=== PATIENT | male | born 1975 | race Caucasian/White ===

== ENCOUNTER 2021-10-26 11:52 | Emergency (ER) | payer MEDICAID ==
[~2021-10-26] VITALS: Ht 175.3 cm; Wt 84.4 kg
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
--- NOTE | 2021-10-26 12:21 | NUR ---
URINE COLLECTED AND SENT
[2021-10-26] MEDS ORDERED: ONDANSETRON HCL/PF 4 MG/2 ML VIAL ONE (12:26)
[2021-10-26] MEDS ORDERED: INSULIN REGULAR, HUMAN 100 UNIT/ML 10 ML VIAL ONE (12:26)
[2021-10-26] MEDS ORDERED: INSULIN REGULAR, HUMAN 100 UNIT/ML 10 ML VIAL IV ONE (12:30)
[2021-10-26] MEDS ORDERED: ONDANSETRON HCL/PF 4 MG/2 ML VIAL IVP ONE (12:30)
[2021-10-26] MEDS ORDERED: IV NS 0.9% 1,000 ML BAG IV ONE (12:30)
[2021-10-26 12:31] LABS: BASOPHILS % (AUTO) 0.6 % (0.0-2.0); EOSINOPHILS % (AUTO) 6.4 % (0.0-6.0); HEMATOCRIT 45 % (39-51); HEMOGLOBIN 14.5 g/dL (13.5-17.5); LYMPHOCYTES # (AUTO) 0.9 K/uL (0.8-4.8); LYMPHOCYTES % (AUTO) 14.9 % (20.0-44.0); MEAN CORPUSCULAR HGB CONC 32 g/dl (31.0-36.0); MEAN CORPUSCULAR VOLUME 92 fL (80-96); MONOCYTES # (AUTO) 0.4 K/uL (0.1-1.30); NEUTROPHILS # (AUTO) 4.4 K/uL (1.8-8.9); NEUTROPHILS % (AUTO) 71.1 % (43.0-81.0); PLATELET COUNT (AUTO) 204 K/uL (150-450); RED BLOOD CELL COUNT(AUTO) 4.92 MIL/uL (4.5-6.0); WHITE BLOOD COUNT (AUTO) 6.2 K/uL (4.3-11.0)
[2021-10-26 12:43] LABS: ALBUMIN 4.4 g/dL (3.4-5.0); BILIRUBIN,DIRECT 0.2 mg/dL (0.0-0.2); BILIRUBIN,TOTAL 0.6 mg/dL (0.2-1.0); CALCIUM, SERUM 8.2 mg/dL (8.5-10.1); CREATININE 1.3 mg/dL (0.6-1.3); POTASSIUM 4.4 mmol/L (3.5-5.1); TOTAL PROTEIN, SERUM 8.4 g/dL (6.4-8.2)
[2021-10-26 14:06] LABS: BILIRUBIN,URINE Negative (NEGATIVE); COLOR,URINE Pink (YELLOW); LEUKOCYTE ESTERASE ,URINE Negative (NEGATIVE); NITRITE, URINE Negative (NEGATIVE); PROTEIN,URINE Negative (NEGATIVE); UGLUCOSE >=1000 mg/dL (NEGATIVE); UROBILINOGEN,URINE 0.2 EU/dL (0.2)
[2021-10-26 14:16] LABS: BACTERIA,URINE None seen /HPF (None Seen); SQUAMOUS EPITHELIAL CELL,UR Few /HPF (None Seen); WBC,URINE 0-2 /HPF (0-3)
[2021-10-26 14:40] VITALS: BP 123/88
--- NOTE | 2021-10-26 14:40 | NUR ---
Patient discharged to home in stable condition. Written and verbal after care instructions given. Patient verbalizes understanding of instruction.IV removed. Catheter intact and site benign. Pressure and 4x4 applied to site. No bleeding noted.
== END 2021-10-26 14:41 | disposition home or self-care (01) ==
LOC: ER 12:00
DX: E11.65 Type 2 diabetes mellitus with hyperglycemia (principal); R11.0 Nausea
CPT/HCPCS: 36415; 80048; 80076; 81001; 82962 ×2; 85025; 96361; 96374; 96375; 99284; J1815; J2405; J7030

== ENCOUNTER 2021-11-19 08:41 | Emergency (ER) | payer MEDICAID, OTHER ==
[~2021-11-19] VITALS: Ht 175.3 cm; Wt 77.1 kg
[2021-11-19] MEDS ORDERED: SULF1TAB48 PO (09:16)
[2021-11-19] MEDS ORDERED: AMOX-427 PO (09:16)
[2021-11-19 09:17] VITALS: BP 146/103
[2021-11-19] MEDS ORDERED: TDAP [DIPH/PERTUSSIS/TET] 0.5 ML VIAL IM ONE ×2 (09:26→09:30)
--- NOTE | 2021-11-19 09:50 | NUR ---
Patient discharged to home in stable condition. Written and verbal after care instructions given. Patient verbalizes understanding of instruction.
== END 2021-11-19 09:50 | disposition home or self-care (01) ==
LOC: ER 08:47
DX: S61.451A Open bite of right hand, initial encounter (principal); I10 Essential (primary) hypertension; E11.9 Type 2 diabetes mellitus without complications; W55.01XA Bitten by cat, initial encounter; Y93.89 Activity, other specified; Y92.89 Other specified places as the place of occurrence of the external cause; Y99.8 Other external cause status
CPT/HCPCS: 90715

== ENCOUNTER 2021-12-08 17:29 | Emergency (ER) | payer OTHER ==
[~2021-12-08] VITALS: Ht 175.3 cm; Wt 77.1 kg
[~2021-12-08 17:29] MED LIST: AMOX-427 PO; SULF1TAB48 PO
--- NOTE | 2021-12-08 18:15 | NUR ---
DR VALENTIN AT BEDSIDE
[2021-12-08] MEDS ORDERED: IV NS 0.9% 1,000 ML BAG IV ONE (18:30)
[2021-12-08 18:58] LABS: CALCIUM, SERUM 8.1 mg/dL (8.5-10.1); CREATININE 1.2 mg/dL (0.6-1.3); POTASSIUM 4.3 mmol/L (3.5-5.1)
[2021-12-08] MEDS ORDERED: INSULIN REGULAR, HUMAN 100 UNIT/ML 10 ML VIAL ONE (19:13)
--- NOTE | 2021-12-08 19:22 | NUR ---
ENDORSED TO IGNACIO SCALES FOR [facility]
[2021-12-08] MEDS ORDERED: IV NS 0.9% 1,000 ML IV ONE (19:30)
[2021-12-08] MEDS ORDERED: INSULIN REGULAR, HUMAN 100 UNIT/ML 10 ML VIAL SQ ONE (19:30)
--- NOTE | 2021-12-08 19:36 | NUR ---
PT TAKEN TO CT VIA [facility]
[2021-12-08] MEDS ORDERED: IOHEXOL-300 100 ML VIAL IV ONE (19:38)
[2021-12-08] MEDS ORDERED: IV NS 0.9% 250 ML IV ONE (19:38)
--- NOTE | 2021-12-08 20:23 | NUR ---
POC BS 291
[2021-12-08 20:34] LABS: BASOPHILS % (AUTO) 0.6 % (0.0-2.0); EOSINOPHILS % (AUTO) 6.1 % (0.0-6.0); HEMATOCRIT 41 % (39-51); HEMOGLOBIN 13.3 g/dL (13.5-17.5); LYMPHOCYTES # (AUTO) 0.9 K/uL (0.8-4.8); LYMPHOCYTES % (AUTO) 21.3 % (20.0-44.0); MEAN CORPUSCULAR HGB CONC 33 g/dl (31.0-36.0); MEAN CORPUSCULAR VOLUME 92 fL (80-96); MONOCYTES # (AUTO) 0.2 K/uL (0.1-1.30); MONOCYTES % (AUTO) 5.6 % (2.0-12.0); NEUTROPHILS # (AUTO) 2.9 K/uL (1.8-8.9); NEUTROPHILS % (AUTO) 66.4 % (43.0-81.0); PLATELET COUNT (AUTO) 244 K/uL (150-450); RED BLOOD CELL COUNT(AUTO) 4.44 MIL/uL (4.5-6.0); WHITE BLOOD COUNT (AUTO) 4.4 K/uL (4.3-11.0)
--- NOTE | 2021-12-08 20:35 | NUR ---
IV removed. Catheter intact and site benign. Pressure and 4x4 applied to site. No bleeding noted. Patient discharged to home in stable condition. Written and verbal after care instructions given. Patient verbalizes understanding of instruction. PT ambulatory with a steady gait
[2021-12-08 20:42] VITALS: BP 131/85
== END 2021-12-08 20:42 | disposition home or self-care (01) ==
LOC: ER 17:30
DX: E11.65 Type 2 diabetes mellitus with hyperglycemia (principal); R55 Syncope and collapse; H93.12 Tinnitus, left ear; I10 Essential (primary) hypertension; E78.5 Hyperlipidemia, unspecified
CPT/HCPCS: 36415; 70450; 70491; 71045; 80048; 82962 ×2; 84443; 85025; 93005; 96360; 96361; 96372; 99285; J1815; J7030 ×2; J7050; Q9967

== ENCOUNTER 2021-12-14 08:10 | Emergency (ER) | payer OTHER ==
[~2021-12-14] VITALS: Ht 175.3 cm; Wt 77.1 kg
--- NOTE | 2021-12-14 08:11 | NUR ---
TO ER BED 9, C/O TESTICULAR PAIN STARTED IN THE BEGINNING OF THE MONTH BUT WORSE TODAY, NO HISTORY OF THE SAME COMPLAIN BEFORE, AAOX3, BREATHING EVEN AND NON LABORED, AWAITING MD ORDERS
--- NOTE | 2021-12-14 08:22 | NUR ---
SEEN AND EXAMINED BY .
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
[2021-12-14] MEDS ORDERED: KETOROLAC TROMETHAMINE INJ 30 MG/ML VIAL IM ONE (09:00)
[2021-12-14] MEDS ORDERED: KETOROLAC TROMETHAMINE 15 MG/ML VIAL ONE (09:09)
[2021-12-14 09:21] LABS: BILIRUBIN,URINE NEGATIVE (NEGATIVE); COLOR,URINE YELLOW (YELLOW); LEUKOCYTE ESTERASE ,URINE NEGATIVE (NEGATIVE); NITRITE, URINE NEGATIVE (NEGATIVE); PROTEIN,URINE NEGATIVE (NEGATIVE); UGLUCOSE NEGATIVE (NEGATIVE); UROBILINOGEN,URINE 0.2 EU/dL (0.2)
--- NOTE | 2021-12-14 09:29 | NUR ---
DR VALENTIN AT BEDSIDE
[2021-12-14] MEDS ORDERED: IBUP-1955 PO ×2 (09:38→09:57)
[2021-12-14] MEDS ORDERED: LEVO500T90 PO ×2 (09:38→09:57)
[2021-12-14 09:48] LABS: BACTERIA,URINE Few /HPF (None Seen); SQUAMOUS EPITHELIAL CELL,UR Few /HPF (None Seen); WBC,URINE 0-2 /HPF (0-3)
--- NOTE | 2021-12-14 09:52 | NUR ---
Patient discharged to home in stable condition. Written and verbal after care instructions given. Patient verbalizes understanding of instruction.
[2021-12-14 10:09] VITALS: BP 132/94
== END 2021-12-14 10:11 | disposition home or self-care (01) ==
LOC: ER 08:11
DX: N45.1 Epididymitis (principal); N50.82 Scrotal pain; I10 Essential (primary) hypertension; E78.5 Hyperlipidemia, unspecified; E11.9 Type 2 diabetes mellitus without complications
CPT/HCPCS: 76870; 81001; 96372; 99284; J1885

== ENCOUNTER 2022-02-23 20:19 | Emergency (ER) | payer OTHER ==
[~2022-02-23] VITALS: Ht 175.3 cm; Wt 77.1 kg
[~2022-02-23 20:19] MED LIST changes: +IBUP-1955 PO; +LEVO500T90 PO
[2022-02-23] MEDS ORDERED: TDAP [DIPH/PERTUSSIS/TET] 0.5 ML VIAL IM ONE ×2 (20:40→21:00)
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
[2022-02-23 20:42] VITALS: BP 143/89
[2022-02-23] MEDS ORDERED: LIDOCAINE HCL/PF 1% 30 ML VIAL TP ONE (21:00)
== END 2022-02-23 21:17 | disposition home or self-care (01) ==
LOC: ER 20:27
DX: S01.111A Laceration without foreign body of right eyelid and periocular area, initial encounter (principal); I10 Essential (primary) hypertension; E78.5 Hyperlipidemia, unspecified; E11.9 Type 2 diabetes mellitus without complications; F41.9 Anxiety disorder, unspecified; F32.A Depression, unspecified; Z87.19 Personal history of other diseases of the digestive system; Z85.01 Personal history of malignant neoplasm of esophagus; Z79.1 Long term (current) use of non-steroidal anti-inflammatories (NSAID); Z79.899 Other long term (current) drug therapy; Y33.XXXA Other specified events, undetermined intent, initial encounter; Y93.89 Activity, other specified; Y92.521 Bus station as the place of occurrence of the external cause; Y99.8 Other external cause status
CPT/HCPCS: 12011; 90471; 90715; 99283; J3490

== ENCOUNTER 2022-02-28 19:54 | Emergency (ER) | payer OTHER ==
[~2022-02-28] VITALS: Ht 175.3 cm; Wt 108.9 kg
[2022-02-28 19:59] VITALS: BP 149/79
--- NOTE | 2022-02-28 20:18 | NUR ---
Patient discharged to home in stable condition. Written and verbal after care instructions given. Patient verbalizes understanding of instruction. Pt ambulatory with a steady gait
== END 2022-02-28 20:18 | disposition home or self-care (01) ==
LOC: ER 20:02
DX: S01.111A Laceration without foreign body of right eyelid and periocular area, initial encounter (principal); S06.0X0A Concussion without loss of consciousness, initial encounter; I10 Essential (primary) hypertension; E78.5 Hyperlipidemia, unspecified; E11.9 Type 2 diabetes mellitus without complications; F41.9 Anxiety disorder, unspecified; F32.A Depression, unspecified; Z87.19 Personal history of other diseases of the digestive system; Z85.01 Personal history of malignant neoplasm of esophagus; Z79.1 Long term (current) use of non-steroidal anti-inflammatories (NSAID); Z79.899 Other long term (current) drug therapy; Y04.8XXA Assault by other bodily force, initial encounter; Y93.89 Activity, other specified; Y92.89 Other specified places as the place of occurrence of the external cause; Y99.8 Other external cause status

== ENCOUNTER 2022-04-03 20:49 | Emergency (ER) | payer OTHER ==
[~2022-04-03] VITALS: Ht 175.3 cm; Wt 77.1 kg
[2022-04-03] MEDS ORDERED: MORPHINE SULFATE INJ 4 MG/ML DISP.SYRIN ONE (21:24)
[2022-04-03] MEDS ORDERED: DIAZEPAM 5 MG/ML 2 ML DISP.SYRIN ONE (21:24)
[2022-04-03] MEDS ORDERED: ACETAMINOPHEN ES 500 MG TABLET ONE (21:25)
[2022-04-03] MEDS ORDERED: ONDANSETRON HCL/PF 4 MG/2 ML VIAL ONE (21:25)
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
[2022-04-03] MEDS ORDERED: MORPHINE SULFATE INJ 2 MG/ML DISP.SYRIN IV ONE (21:30)
[2022-04-03] MEDS ORDERED: IV NS 0.9% 1,000 ML BAG IV ONE (21:30)
[2022-04-03] MEDS ORDERED: DIAZEPAM 5 MG/ML 2 ML DISP.SYRIN IV ONE (21:30)
[2022-04-03] MEDS ORDERED: ACETAMINOPHEN ES 500 MG TABLET PO ONE (21:30)
[2022-04-03] MEDS ORDERED: ONDANSETRON HCL/PF 4 MG/2 ML VIAL IVP ONE (21:30)
--- NOTE | 2022-04-03 21:30 | NUR ---
20G IV LINE ESTABLISHED AT [facility]. BLOOD DRAWN AND SENT TO LAB.
[2022-04-03 21:32] LABS: BASOPHILS % (AUTO) 0.6 % (0.0-2.0); EOSINOPHILS % (AUTO) 7.4 % (0.0-6.0); HEMATOCRIT 37 % (39-51); HEMOGLOBIN 12.3 g/dL (13.5-17.5); LYMPHOCYTES # (AUTO) 1.4 K/uL (0.8-4.8); LYMPHOCYTES % (AUTO) 29.4 % (20.0-44.0); MEAN CORPUSCULAR HGB CONC 33 g/dl (31.0-36.0); MEAN CORPUSCULAR VOLUME 93 fL (80-96); MONOCYTES # (AUTO) 0.3 K/uL (0.1-1.30); MONOCYTES % (AUTO) 7.1 % (2.0-12.0); NEUTROPHILS # (AUTO) 2.7 K/uL (1.8-8.9); NEUTROPHILS % (AUTO) 55.5 % (43.0-81.0); PLATELET COUNT (AUTO) 210 K/uL (150-450); RED BLOOD CELL COUNT(AUTO) 3.98 MIL/uL (4.5-6.0); WHITE BLOOD COUNT (AUTO) 4.8 K/uL (4.3-11.0)
[2022-04-03 21:39] LABS: CALCIUM, SERUM 8.1 mg/dL (8.5-10.1); CARBON DIOXIDE 19 mmol/L (21-32); CHLORIDE 101 mmol/L (98-107); CREATININE 0.9 mg/dL (0.6-1.3); GLUCOSE 190 mg/dL (74-106); POTASSIUM 4.3 mmol/L (3.5-5.1); SODIUM SERUM 137 mmol/L (136-145); UREA NITROGEN, BLOOD 14 mg/dL (7-18)
[2022-04-04] MEDS ORDERED: CYCL5TAB PO (00:23)
[2022-04-04] MEDS ORDERED: METH4TAB17 PO (00:23)
[2022-04-04] MEDS ORDERED: IBUP-1955 PO (00:23)
[2022-04-04] MEDS ORDERED: HYDR-4303 PO (00:23)
[2022-04-04] MEDS ORDERED: HYDROCODONE/APAP 5/325MG TABLET PO ONE (00:30)
[2022-04-04] MEDS ORDERED: CYCLOBENZAPRINE 10 MG TABLET PO ONE (00:30)
[2022-04-04] MEDS ORDERED: HYDROCODONE/APAP 5/325MG TABLET ONE (00:36)
--- NOTE | 2022-04-04 01:39 | NUR ---
Patient discharged to home in stable condition. Written and verbal after care instructions given. Patient verbalizes understanding of instruction.
[2022-04-04 01:42] VITALS: BP 114/77
== END 2022-04-04 01:43 | disposition home or self-care (01) ==
LOC: ER 21:04
DX: S16.1XXA Strain of muscle, fascia and tendon at neck level, initial encounter (principal); M54.12 Radiculopathy, cervical region; R07.89 Other chest pain; I10 Essential (primary) hypertension; E78.5 Hyperlipidemia, unspecified; E11.9 Type 2 diabetes mellitus without complications; F41.9 Anxiety disorder, unspecified; F32.A Depression, unspecified; Z87.19 Personal history of other diseases of the digestive system; Z85.01 Personal history of malignant neoplasm of esophagus; Z79.899 Other long term (current) drug therapy; X50.0XXA Overexertion from strenuous movement or load, initial encounter; Y93.89 Activity, other specified; Y92.89 Other specified places as the place of occurrence of the external cause; Y99.8 Other external cause status
CPT/HCPCS: 36415; 71045; 72125; 80048; 84484 ×2; 85025; 93005 ×2; 96361; 96374; 96375; 99285; J2270; J2405; J3360; J7030

== ENCOUNTER 2022-10-14 14:40 | Emergency (ER) | payer OTHER ==
[~2022-10-14 14:40] MED LIST changes: +CYCL5TAB PO; +METH4TAB17 PO
--- NOTE | 2022-10-14 15:00 | NUR ---
CALLED TO TRIAGE,NO ANSWER
--- NOTE | 2022-10-14 15:30 | NUR ---
CALLED TO TRIAGE,NO ANSWER
--- NOTE | 2022-10-14 15:42 | NUR ---
CALLED TO TRIAGE,NO ANSWER
== END 2022-10-14 15:43 | disposition left against medical advice (07) ==
LOC: ER 14:46
DX: Z53.21 Procedure and treatment not carried out due to patient leaving prior to being seen by health care provider (principal)

== ENCOUNTER 2022-12-10 17:09 | Emergency (ER) | payer OTHER ==
[~2022-12-10] VITALS: Ht 167.6 cm; Wt 72.6 kg
--- NOTE | 2022-12-10 17:20 | NUR ---
Have an erection approaching 4H. Was given an injection by PMD. Now feel dizzy/light headed. Heart beating fast.
[2022-12-10] MEDS ORDERED: DIAZEPAM 5 MG TABLET PO ONE (17:30)
[2022-12-10] MEDS ORDERED: MORPHINE SULFATE INJ 2 MG/ML DISP.SYRIN IV ONE (17:30)
[2022-12-10] MEDS ORDERED: MORPHINE SULFATE INJ 4 MG/ML DISP.SYRIN ONE (17:36)
[2022-12-10] MEDS ORDERED: MORPHINE SULFATE INJ 2 MG/ML DISP.SYRIN ONE (17:36)
[2022-12-10] MEDS ORDERED: DIAZEPAM 5 MG TABLET ONE (17:36)
[2022-12-10] MEDS ORDERED: BUPIVACAINE 0.5 % PF 150 MG/30 ML VIAL ONE (17:39)
--- NOTE | 2022-12-10 17:40 | NUR ---
ESTABLISHED IV ACCESS AT RIGHT HAND G20.
[2022-12-10] MEDS ORDERED: BUPIVACAINE 0.5 % PF 150 MG/30 ML VIAL IJ ONE (18:00)
[2022-12-10] MEDS ORDERED: PHENYLEPHRINE 10 MG/ML VIAL MC ONE (19:00)
[2022-12-10] MEDS ORDERED: PHENYLEPHRINE 10 MG/ML VIAL ONE (19:15)
--- NOTE | 2022-12-10 19:33 | NUR ---
phenylephrine prepared and given by md at bedside
--- NOTE | 2022-12-10 20:40 | NUR ---
Patient discharged to home in stable condition. Written and verbal after care instructions given. Patient verbalizes understanding of instruction.
[2022-12-10 21:32] VITALS: BP 131/68
== END 2022-12-10 20:40 | disposition home or self-care (01) ==
LOC: ER 17:12
DX: N48.33 Priapism, drug-induced (principal); I10 Essential (primary) hypertension; E78.5 Hyperlipidemia, unspecified; E11.9 Type 2 diabetes mellitus without complications; F41.9 Anxiety disorder, unspecified; F32.A Depression, unspecified; Z79.899 Other long term (current) drug therapy
CPT/HCPCS: 99285; 54220; 96374; J3490; J2270 ×2; J2370

== ENCOUNTER 2023-07-17 21:32 | Emergency (ER) | payer OTHER ==
[~2023-07-17] VITALS: Ht 172.7 cm; Wt 77.1 kg
[2023-07-17 21:47] VITALS: TEMP 98.1
[2023-07-17] MEDS ORDERED: MORPHINE SULFATE INJ 4 MG/ML DISP.SYRIN ONE (22:47)
[2023-07-17] MEDS ORDERED: KETOROLAC TROMETHAMINE INJ 30 MG/ML VIAL ONE (22:47)
[2023-07-17] MEDS ORDERED: ONDANSETRON HCL/PF 4 MG/2 ML VIAL ONE (22:47)
[2023-07-17 22:50] LABS: BASOPHILS % (AUTO) 0.4 % (0.0-2.0); EOSINOPHILS # (AUTO) 0.5 K/uL (0.0-0.7); HEMATOCRIT 37 % (39-51); LYMPHOCYTES # (AUTO) 1.7 K/uL (0.8-4.8); LYMPHOCYTES % (AUTO) 25.7 % (20.0-44.0); MEAN CORPUSCULAR HEMOGLOBIN 30 PG (26.0-33.0); MEAN CORPUSCULAR HGB CONC 32 g/dl (31.0-36.0); MEAN CORPUSCULAR VOLUME 91 fL (80-96); MONOCYTES # (AUTO) 0.4 K/uL (0.1-1.30); MONOCYTES % (AUTO) 5.8 % (2.0-12.0); NEUTROPHILS % (AUTO) 60.1 % (43.0-81.0); PLATELET COUNT (AUTO) 259 K/uL (150-450); RED BLOOD CELL COUNT(AUTO) 4.07 MIL/uL (4.5-6.0); RED CELL DISTRIBUTION WIDTH 13.1 % (11.5-15.0); WHITE BLOOD COUNT (AUTO) 6.7 K/uL (4.3-11.0)
[2023-07-17] MEDS ORDERED: ONDANSETRON HCL/PF 4 MG/2 ML VIAL IVP ONE (23:00)
[2023-07-17] MEDS ORDERED: MORPHINE SULFATE INJ 2 MG/ML DISP.SYRIN IV ONE (23:00)
[2023-07-17] MEDS ORDERED: IV NS 0.9% 1,000 ML BAG IV ONE (23:00)
[2023-07-17] MEDS ORDERED: KETOROLAC TROMETHAMINE INJ 30 MG/ML VIAL IV ONE (23:00)
[2023-07-17 23:05] LABS: CALCIUM, SERUM 9.8 mg/dL (8.5-10.1); CARBON DIOXIDE 22 mmol/L (21-32); CHLORIDE 95 mmol/L (98-107); CREATININE 1.5 mg/dL (0.6-1.3); POTASSIUM 4.2 mmol/L (3.5-5.1); SODIUM SERUM 131 mmol/L (136-145); UREA NITROGEN, BLOOD 14 mg/dL (7-18)
[2023-07-17 23:09] LABS: GLUCOSE 507 mg/dL (74-106)
[2023-07-17 23:21] LABS: APPEARANCE,URINE CLEAR (CLEAR); BILIRUBIN,URINE NEGATIVE (NEGATIVE); BLOOD, URINE TRACE-INTA Ery/uL (NEGATIVE); COLOR,URINE YELLOW (YELLOW); KETONES,URINE NEGATIVE (NEGATIVE); LEUKOCYTE ESTERASE ,URINE NEGATIVE (NEGATIVE); NITRITE, URINE NEGATIVE (NEGATIVE); PROTEIN,URINE NEGATIVE (NEGATIVE); UGLUCOSE 3+ mg/dL (NEGATIVE); UROBILINOGEN,URINE 0.2 EU/dL (0.2)
[2023-07-17 23:24] LABS: ADD URINE CULTURE NO; BACTERIA,URINE Rare /HPF (None Seen); SQUAMOUS EPITHELIAL CELL,UR Few /HPF (None Seen); WBC,URINE 0-2 /HPF (0-3)
[2023-07-17] MEDS ORDERED: INSULIN REGULAR, HUMAN 100 UNIT/ML 10 ML VIAL IV ONE (23:30)
[2023-07-17 23:40] VITALS: BP 126/63; O2SAT 98
[2023-07-17] MEDS ORDERED: HYDROMORPHONE 1 MG/1 ML DISP.SYRIN ONE (23:52)
[2023-07-17] MEDS ORDERED: INSULIN REGULAR, HUMAN 100 UNIT/ML 10 ML VIAL ONE (23:52)
[2023-07-18] MEDS ORDERED: HYDROMORPHONE 1 MG/1 ML DISP.SYRIN IV ONE
[2023-07-18] MEDS ORDERED: KETO10TA2 PO (00:14)
[2023-07-19 15:06] LABS: CHLAMYDIA TRACHOMATIS NAA Negative (Negative); NEISSERIA GONORRHOEAE NAA Negative (Negative)
== END 2023-07-18 00:54 | disposition home or self-care (01) ==
LOC: ER 21:33
DX: N50.811 Right testicular pain (principal); K40.90 Unilateral inguinal hernia, without obstruction or gangrene, not specified as recurrent; E11.65 Type 2 diabetes mellitus with hyperglycemia; I10 Essential (primary) hypertension; E78.5 Hyperlipidemia, unspecified; F32.A Depression, unspecified; F41.9 Anxiety disorder, unspecified; Z79.899 Other long term (current) drug therapy
CPT/HCPCS: 99285; 74176; 96374; 71045; 96375 ×2; 96361; 93005; 76870; 85025; 80048; 81001; 36415; 84484; 87491; 87591; 96372; J1815; J2270; J1885; J2405; J7030; J1170

== ENCOUNTER 2023-10-15 16:12 | Emergency (ER) | payer OTHER ==
[~2023-10-15] VITALS: Ht 175.3 cm; Wt 77.1 kg
[~2023-10-15 16:12] MED LIST changes: +KETO10TA2 PO
[2023-10-15 17:21] LABS: BASOPHILS % (AUTO) 0.4 % (0.0-2.0); EOSINOPHILS # (AUTO) 0.5 K/uL (0.0-0.7); EOSINOPHILS % (AUTO) 7.1 % (0.0-6.0); HEMATOCRIT 36 % (39-51); HEMOGLOBIN 11.9 g/dL (13.5-17.5); LYMPHOCYTES # (AUTO) 1.3 K/uL (0.8-4.8); LYMPHOCYTES % (AUTO) 20.7 % (20.0-44.0); MEAN CORPUSCULAR HEMOGLOBIN 30 PG (26.0-33.0); MEAN CORPUSCULAR HGB CONC 33 g/dl (31.0-36.0); MEAN CORPUSCULAR VOLUME 89 fL (80-96); MONOCYTES # (AUTO) 0.6 K/uL (0.1-1.30); MONOCYTES % (AUTO) 8.7 % (2.0-12.0); NEUTROPHILS % (AUTO) 63.1 % (43.0-81.0); PLATELET COUNT (AUTO) 275 K/uL (150-450); RED BLOOD CELL COUNT(AUTO) 4.02 MIL/uL (4.5-6.0); RED CELL DISTRIBUTION WIDTH 13.2 % (11.5-15.0); WHITE BLOOD COUNT (AUTO) 6.4 K/uL (4.3-11.0)
[2023-10-15 17:34] LABS: CALCIUM, SERUM 8.5 mg/dL (8.5-10.1); CARBON DIOXIDE 23 mmol/L (21-32); CHLORIDE 106 mmol/L (98-107); GLUCOSE 100 mg/dL (74-106); POTASSIUM 4.6 mmol/L (3.5-5.1); SODIUM SERUM 137 mmol/L (136-145); UREA NITROGEN, BLOOD 14 mg/dL (7-18)
[2023-10-15] MEDS ORDERED: ONDANSETRON HCL/PF 4 MG/2 ML VIAL ONE (17:44)
[2023-10-15] MEDS ORDERED: MORPHINE SULFATE INJ 4 MG/ML DISP.SYRIN ONE (17:45)
[2023-10-15] MEDS: MORPHINE SULFATE INJ 2 MG/ML DISP.SYRIN IV ONE (17:48)
[2023-10-15] MEDS: ONDANSETRON HCL/PF 4 MG/2 ML VIAL IV ONE (17:49)
[2023-10-15] MEDS ORDERED: HYDR-4303 PO (18:27)
[2023-10-15] MEDS ORDERED: IBUP-1955 PO (18:27)
[2023-10-15 18:57] VITALS: BP 115/75; TEMP 98.4; O2SAT 97
== END 2023-10-15 18:57 | disposition home or self-care (01) ==
LOC: ER 16:36
DX: S22.41XA Multiple fractures of ribs, right side, initial encounter for closed fracture (principal); R07.89 Other chest pain; I10 Essential (primary) hypertension; E78.5 Hyperlipidemia, unspecified; E11.9 Type 2 diabetes mellitus without complications; F41.9 Anxiety disorder, unspecified; F32.A Depression, unspecified; W01.0XXA Fall on same level from slipping, tripping and stumbling without subsequent striking against object, initial encounter; Y93.89 Activity, other specified; Y92.89 Other specified places as the place of occurrence of the external cause; Y99.8 Other external cause status
CPT/HCPCS: 99285; 96374; 96375; 93005 ×3; 71100; 85025; 80048; 36415; 84484; 83880; J2270; J2405

== ENCOUNTER 2023-11-01 11:25 | Emergency (ER) | payer OTHER ==
[~2023-11-01] VITALS: Ht 175.3 cm; Wt 77.1 kg
[~2023-11-01 11:25] MED LIST changes: +HYDR-4303 PO
[2023-11-01 11:54] VITALS: BP 142/88; TEMP 98
[2023-11-01] MEDS ORDERED: AMOX500C2 PO (12:06)
[2023-11-01 12:13] VITALS: O2SAT 97
== END 2023-11-01 12:14 | disposition home or self-care (01) ==
LOC: ER 11:25
DX: K08.89 Other specified disorders of teeth and supporting structures (principal); I10 Essential (primary) hypertension; E78.5 Hyperlipidemia, unspecified; E11.9 Type 2 diabetes mellitus without complications; F41.9 Anxiety disorder, unspecified; F32.A Depression, unspecified

== ENCOUNTER 2023-12-28 23:54 | Emergency (ER) | payer OTHER ==
[~2023-12-28] VITALS: Ht 175.3 cm; Wt 77.1 kg
[~2023-12-28 23:54] MED LIST changes: +AMOX500C2 PO
[2023-12-29] VITALS: BP 163/100; TEMP 98; O2SAT 99
== END 2023-12-29 01:12 | disposition left against medical advice (07) ==
LOC: ER 23:55
DX: H92.03 Otalgia, bilateral (principal); I10 Essential (primary) hypertension; E78.5 Hyperlipidemia, unspecified; E11.9 Type 2 diabetes mellitus without complications; F41.9 Anxiety disorder, unspecified; F32.A Depression, unspecified; Z53.21 Procedure and treatment not carried out due to patient leaving prior to being seen by health care provider